=== PATIENT | male | born 1955 | race Caucasian/White ===

== ENCOUNTER 2016-10-09 07:22 | Day surgery (SDC) | payer OTHER ==
[~2016-10-09] VITALS: Ht 170.2 cm; Wt 77.9 kg
[~2016-10-09 07:22] MED LIST: ACAR50TA PO; GLIP-95 PO; METF-480 PO; METO10TA92 PO; NAPR-260 PO; ONDA4TAB35 PO; SITA100T8 PO
[2016-10-09 08:31] VITALS: Ht 170.2 cm; Wt 77.9 kg
[2016-10-09] MEDS ORDERED: PROPOFOL 20 ML ONE (08:41)
[2016-10-09] MEDS ORDERED: MIDAZOLAM 1 MG/ML 2 ML INJ ONE (08:42)
[2016-10-09] MEDS ORDERED: FENTAnyl 50 MCG/ML VIAL ONE (08:42)
[2016-10-09 09:30] VITALS: BP 107/77; PULSE 70; RESP 18
--- NOTE | 2016-10-09 11:35 | GILP ---
DATE OF PROCEDURE: PROCEDURE PERFORMED: Piecemeal polypectomy and colonoscopy with a biopsy. INDICATION: A 61-year-old male undergoing this procedure for colon cancer screening. The risks of the procedure, related and unrelated complications, anesthetic risks, alternatives discussed and inf ormed consent was obtained. DESCRIPTION OF PROCEDURE: The patient was brought to the GI lab, sedated by the anesthesiologist. After optimal sedation, digital examination done and sphincter tone was normal, no mass was felt. P ediatric colonoscope passed with much ease into rectum, advanced through sigmoid, descending, transv erse colon all the way into the cecum. IC well identified. Cecum was filled with semi-solid stool completely. Could not it out completely. There were 2 polyps identified in the presacral area by p iecemeal polypectomy. The largest of the polyp was removed in toto, it was 2 cm in diameter, caulif lower in appearance. There was another polyp adjacent to that, that was also removed by cold snare technique. The large polyp was removed by piecemeal and hot snare technique. The rest of the colon appeared normal. Few scattered small mouth diverticula identified. There was a flat polyp in the rectum, successfully removed by jumbo biopsy forceps. Retroversion done, internal hemorrhoids ident ified. Scope was straightened out and removed with good patient tolerance. IMPRESSION: 1. Hemorrhoids. 2. Mild diverticulosis. 3. Flat polyp in the rectum, successfully removed by jumbo biopsy forceps. 4. A 2 cm, cauliflower polyp in the presacral area successfully removed by piecemeal polypectomy, _ ____ small pedicle. 5. Polyp, again in the presacral area 1 cm in diameter, removed by cold snare technique. PLAN: 1. Review histopathology of the polyp. 2. Stay on high fiber diet. 3. Definitely needs a colonoscopy in next 3 years. Dictated By: YANNA BLANTON/NATASHA Conf#: [id number] DID#: [id number]
== END 2016-10-09 12:02 | disposition home or self-care (01) ==
LOC: GIL 07:22
PROVIDERS: ATTEND Internal Medicine Gastroenterology
DX: Z12.11 Encounter for screening for malignant neoplasm of colon (principal); D12.0 Benign neoplasm of cecum; K62.1 Rectal polyp; K64.8 Other hemorrhoids; K57.90 Diverticulosis of intestine, part unspecified, without perforation or abscess without bleeding; E11.9 Type 2 diabetes mellitus without complications
CPT/HCPCS: 45380; 82962; 88305; J2250; J3010

== ENCOUNTER 2017-06-24 09:28 | Emergency (ER) | END 2017-06-24 12:39 | disposition home or self-care (01) ==